=== PATIENT | female | born 1995 | race African-American/Black ===

== ENCOUNTER → 2017-05-20 00:20 | Observation (INO) ==
[2017-05-19 23:28] LABS: Bilirubin,Urine Negative (Negative); Blood,Urine Negative (Negative); Clarity,Urine Cloudy (Clear); Color,Urine Yellow (Yellow); Glucose,Urine (UA) Normal (Normal); Ketones,Urine Negative (Negative); Leukocyte Esterase,Urine Small (Negative); Nitrite,Urine Negative (Negative); Protein,Urine Negative (Neg-Trace); Specific Gravity,Urine 1.008 (1.010-1.025); Urobilinogen,Urine Normal (Normal)
[2017-05-19 23:30] LABS: Bacteria,Urine Few per hpf (None-Few); Hyaline Casts,Urine None Seen per lpf (None-Few); RBC,Urine 0-3 per hpf (0-3); Squamous Epithelial Cell,Urine Many per lpf (None-Few); WBC,Urine 0-3 per hpf (0-3)
[2017-05-19 23:34] LABS: Amphetamine Screen,Urine Negative ng/mL (Cutoff=1000); Barbiturate Screen,Urine Negative ng/mL (Cutoff=200); Benzodiazepines Screen,Urine Negative ng/mL (Cutoff=200); Cannabinoid Screen,Urine Negative ng/mL (Cutoff = 50); Cocaine Screen,Urine Negative ng/mL (Cutoff= 300); Opiate Screen,Urine Negative ng/mL (Cutoff=300); Phencyclidine Screen,Urine Negative ng/mL (Cutoff=25)
--- NOTE | 2017-05-20 07:02 | Discharge Summary ---
Date of Encounter: 05/20/17 Time of Encounter: 00:19 - Discharge Diagnosis (1) 35 weeks gestation of Priority: Primary Status: Acute Comments: admitted for observation (2) Vaginal discharge during in third trimester Priority: Secondary Status: Acute Comments: nitrazine negative (3) NST (non-stress test) reactive on surveillance Priority: Secondary Status: Acute Comments: 125 bpm moderate variability +15x15 accels no decels noted. cat. 1 tracing no contractions noted. - Discharge Medications Home Medications: Multivitamin [Flintstones] 1 each PO DAILY 05/19/17 [History] Allergies/Adverse Reactions: 3 Allergy/AdvReac Type Severity Reaction Status Date / Time diphenhydramine Allergy Rash Verified 05/19/17 22:59 [From Ellen] Data Procedures and tests throughout hospitalization: Laboratory Tests 05/19/17 05/19/17 23:12 23:12 Urine Color Yellow Urine Clarity Cloudy A Urine pH 7.0 Ur Specific [place] 1.008 L Urine Protein Negative Urine Glucose (UA) Normal Urine Ketones Negative Urine Blood Negative Urine Nitrite Negative Urine Bilirubin Negative Urine Urobilinogen Normal Ur Leukocyte Esterase Small H Urine Microscopic RBC 0-3 Urine Microscopic WBC 0-3 Ur Squamous Epith Cells Many H Urine Bacteria Few Hyaline Casts None Seen Ur Culture Indicated? YES A Urine Opiates Screen Negative Ur Barbiturates Screen Negative Ur Phencyclidine Scrn Negative Ur Amphetamines Screen Negative U Benzodiazepines Scrn Negative Urine Cocaine Screen Negative U Marijuana (THC) Screen Negative Labs on day of discharge: Labs from last 24 hours 05/19/17 05/19/17 23:12 23:12 Urine Color Yellow Urine Clarity Cloudy A Urine pH 7.0 Ur Specific [place] 1.008 L Urine Protein Negative Urine Glucose (UA) Normal Urine Ketones Negative Urine Blood Negative Urine Nitrite Negative Urine Bilirubin Negative Urine Urobilinogen Normal Ur Leukocyte Esterase Small H Urine Microscopic RBC 0-3 Urine Microscopic WBC 0-3 Ur Squamous Epith Cells Many H Urine Bacteria Few Hyaline Casts None Seen Ur Culture Indicated? YES A Urine Opiates Screen Negative Ur Barbiturates Screen Negative Ur Phencyclidine Scrn Negative Ur Amphetamines Screen Negative U Benzodiazepines Scrn Negative Urine Cocaine Screen Negative U Marijuana (THC) Screen Negative Date of admission: 05/19/17 22:40 Primary care physician: PCP NONE Discharging clinician: Laura Prasad Anticipated date of discharge: 05/20/17 - Patient Status Disposition: Home, Self-Care Condition: Good Functional capacity at discharge: independent ambulation - Discharge Instructions Follow Up With: NONE,PCP [Primary Care Provider] - Additional Instructions: LABOR AND DELIVERY DISCHARGE INSTRUCTIONS Signs and Symptoms to be Reported to your Doctor Immediately: * Sudden gush, continuous or intermittent lead of fluid from vagina (note the time of gush and color of fluid) * Onset of bright red vaginal bleeding with or without pain (if you had a vaginal exam during this visit you may notice some dark red spotting. This is normal.) * Lower abdominal cramping or backache that is premenstrual-like feeling. * More than 6 contractions in one hour. * Burning during urination, having to urinate more frequently or pain in your mid-back. * A change in the baby's activity. This could be an increase or decrease in activity. * Severe headache which does not go away with tylenol. * Sudden swelling in the face, hands, arms and/or legs. * Upper abdominal pain - sometimes associated with heartburn or nausea and is not relieved by Maalox, Mylanta or Tums. * Dizziness or blurred vision or visual disturbances (seeing stars/lights). * Kick Counts One hour after a meal, lay down on one side in a quiet place. Count the number of rachel the baby moves during an hour. If less than 6 movements, notify your physician. Diet: *Force fluids - 8-10 tall glasses of fluid per day. May include popsicles and jello. 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 Patient reports +FM. Patient denies contractions or VB. SVE per RN . Time Attestation: Total time spent providing and/or coordinating discharge services: Time Spent: Less than 30 minutes Exam - Other Additional findings: Patient seen and assessed by RN. FHR 125 bpm moderate variability +15x15 accels no decels cat. 1 tracing. no contractions noted. - VTE Reasons for not Prescribing Prophylaxis: Treatment not Indicated - Low risk for VTE
== END | disposition home or self-care (01) ==
LOC: 1NENULAB
PROVIDERS: ADMIT Obstetrics & Gynecology; ATTEND Obstetrics & Gynecology

== ENCOUNTER → 2018-04-30 02:19 | Observation (INO) ==
[2018-04-30 00:48] LABS: Bilirubin,Urine Negative (Negative); Blood,Urine Negative (Negative); Clarity,Urine Cloudy (Clear); Color,Urine Yellow (Yellow); Glucose,Urine (UA) Normal (Normal); Ketones,Urine Negative (Negative); Leukocyte Esterase,Urine Trace (Negative); Nitrite,Urine Negative (Negative); Protein,Urine Negative (Neg-Trace); Specific Gravity,Urine 1.005 (1.010-1.025); Urobilinogen,Urine Normal (Normal)
[2018-04-30 00:49] LABS: Amphetamine Screen,Urine Negative ng/mL (Cutoff=1000); Bacteria,Urine Moderate per hpf (None-Few); Barbiturate Screen,Urine Negative ng/mL (Cutoff=200); Benzodiazepines Screen,Urine Negative ng/mL (Cutoff=200); Cannabinoid Screen,Urine Negative ng/mL (Cutoff = 50); Cocaine Screen,Urine Negative ng/mL (Cutoff= 300); Hyaline Casts,Urine None Seen per lpf (None-Few); Opiate Screen,Urine Negative ng/mL (Cutoff=300); Phencyclidine Screen,Urine Negative ng/mL (Cutoff=25); RBC,Urine 0-3 per hpf (0-3); Squamous Epithelial Cell,Urine Many per lpf (None-Few)
[2018-04-30 01:17] LABS: Amorphous Sediment,Urine Few (Few)
--- NOTE | 2018-05-06 16:22 | Event Note ---
Date of Encounter: 04/30/18 Time of Encounter: 20:00 Ivette is a 22-year-old -[place] female who presented to labor and delivery at 37+ weeks gestation complaining of contractions. On presentation patient was found to be brad irregularly. Category 1 tracing was noted by nursing. Urinalysis was ordered which completely negative. Patient did not change her cervix over the course of time. Patient was monitored. She ambulated. She did not change her cervix. Because of this she was discharged to home. I was notified by phone from nursing that there been no cervical change and that patient would like to go home. I gave the order for patient to be discharged.
== END | disposition home or self-care (01) ==
LOC: 1NENULAB
PROVIDERS: ADMIT Obstetrics & Gynecology; ATTEND Obstetrics & Gynecology

== ENCOUNTER 2018-05-07 23:46 | Inpatient (IN) ==
[~2018-05-07 23:46] MED LIST: Famotidine 20 MG/2 ML VIAL IVP PRN; Lidocaine 1% 20 ML MDV INFILT PRN; Metoclopramide 10 MG/2 ML VIAL IVP PRN; Naloxone 0.4 MG/ML INJ IVP PRN; Ondansetron 4 MG/2 ML VIAL IVP PRN
[2018-05-08] MEDS ORDERED: *HR* Nalbuphine 10 MG/ML AMPUL IV PRN (00:04)
[2018-05-08] MEDS ORDERED: Ringers Solution, Lactated 1,000 ML ONE (00:09)
[2018-05-08 00:18] LABS: Basophils % 0.2 %; Eosinophils # 0.1 K/mcL (0.0-0.6); Eosinophils % 0.6 %; Hematocrit 33.1 % (35.3-44.9); Hemoglobin 10.8 g/dL (11.5-15.4); Immature Granulocytes % 1.3 % (0-4); Lymphocytes # 2.6 K/mcL (0.6-4.6); Lymphocytes % 20.2 %; Mean Corpuscular HGB Conc 32.6 g/dL (31.6-35.5); Mean Corpuscular Volume 79.6 fL (83.0-100.0); Mean Platelet Volume 12.1 fL (9.4-12.4); Monocytes # 0.8 K/mcL (0.0-1.3); Monocytes % 6.5 %; Neutrophils # 9.1 K/mcL (1.6-8.9); Platelet Count 210 K/mcL (140-400); Red Blood Count 4.16 M/mcL (3.82-4.97); Red Cell Distribution Width 15.7 % (11.5-14.5); Segmented Neutrophils % 71.2 %
[2018-05-08 00:19] LABS: Amphetamine Screen,Urine Negative ng/mL (Cutoff=1000); Barbiturate Screen,Urine Negative ng/mL (Cutoff=200); Benzodiazepines Screen,Urine Negative ng/mL (Cutoff=200); Cannabinoid Screen,Urine Negative ng/mL (Cutoff = 50); Cocaine Screen,Urine Negative ng/mL (Cutoff= 300); Opiate Screen,Urine Negative ng/mL (Cutoff=300); Phencyclidine Screen,Urine Negative ng/mL (Cutoff=25)
--- NOTE | 2018-05-08 03:50 | OB/GYN History & Physical ---
Date of Encounter: 05/08/18 Time of Encounter: 02:30 Assessment and Plan (1) 37 weeks gestation of Current visit: Yes Status: Acute Admit for labor History of Present Illness Chief complaint: Labor HPI: Ms. Cota is a 22 year old at 37 weeks gestation that presents to labor and delivery with c/o contractions that began after her physician "sweeped " her membranes yesterday. She denies any problems with this , but did state she had an abnormal 1 hour, but never did her 3 hour GTT. She states positive movement. She denies headache, vision changes, epigastric pain, leaking of fluid, and vaginal bleeding. Labs: Blood type O- GBS neg HIV neg Hep B neg Hep C pos RPR neg Past Med Surg Social Fam HX - Past Medical History Medical history: non-contributory Psychiatric history: no psych history - Past Surgical History Surgical History: no surgical history - Social History Smoking Status: Current every day smoker Smokeless Tobacco Status: No Alcohol use: none Drug use: none - Family History Grandfather Living Status: Still Living Hx Family Endocrine Disorder: Yes (Diabetic) Mother Hx Family Medical Disorders: Yes (GDM) Obstetrical History - Pregnancies : 4 Para: 3 Term: 3 : 0 Ab's: 0 Livin Medications and Allergies Multivitamin [Flintstones] 1 each PO DAILY 05/19/17 [History] Ferrous Sulfate [Iron] 325 mg PO DAILY 04/30/18 [History] 3 Allergy/AdvReac Type Severity Reaction Status Date / Time diphenhydramine AdvReac Dizziness Verified 05/08/18 00:18 [From Benadryl] Review of System OB All systems PM: reviewed and no additional remarkable complaints except as stated Exam - Constitutional Constitutional: well developed, well nourished, no acute distress, average body habitus - HEENT HEENT: Normocephaly, Mucus Membranes Moist - Lungs Respiratory exam: CTAB - Cardiovascular Cardiovascular exam: RRR - Abdomen Abdomen: Present: bowel sounds normal, gravid, non tender - Extremities Extremities exam: normal capillary refill, normal inspection, radial pulses palpable and symmetrical Deep Tendon Reflex Grade: 2+ Normal - Vagina Vagina: Present: normal moisture - Cervix Dilation: 6 Effacement: 90 Station: -1 Results Result Diagrams: 09/20/18 23:50 Abnormal lab results WBC 12.7 K/mcL (4.3-11.1) H 05/07/18 23:50 Hgb 10.8 g/dL (11.5-15.4) L 05/07/18 23:50 Hct 33.1 % (35.3-44.9) L 05/07/18 23:50 MCV 79.6 fL (83.0-100.0) L 05/07/18 23:50 MCH 26.0 pg (28.0-33.3) L 05/07/18 23:50 RDW 15.7 % (11.5-14.5) H 05/07/18 23:50 Neutrophils # 9.1 K/mcL (1.6-8.9) H 05/07/18 23:50 All other labs normal. - VTE Reasons for not Prescribing Prophylaxis: Treatment not Indicated - Low risk for VTE
--- NOTE | 2018-05-08 03:58 | OB/GYN Procedure Note ---
Delivery - Delivery Date: 05/08/18 Provider: Chanell Rowan Intrapartum events: none Delivery induction: none Delivery augmentation: rupture of membranes Delivery monitor: external FHT, external uterine Anesthesia: local Quantitated Blood Loss: 300 - (s) Infant A Delivery Date: 05/08/18 Delivery Time: 03:11 Presentation: vertex Position: JUNI (compound right hand) Route of delivery: Gender: Female Viability: Viable Pounds: 6 Ounces: 9 Weight Gram: 2.965 kg at 1 minute: 9 at 5 mins: 9 Shoulder Dystocia: not encountered Specimens collected: cord blood Placenta: spontaneous Cord: 3 umbilical vessels - Repair Episiotomy: none Laceration Description: Labial (bilateral) - Complications Delivery complications: none Delivery comments: AROM for clear fluid. Patient then went to complete within 2 contractions and began spontaneously pushing to of viable, vigorous female in the JUNI position with a compound right hand. No nuchal, no meconium, no shoulder dystocia encountered. placed on maternal abdomen, warmed, dried, and stimulated. Cord double clamped and cut with assitance of FOB after pulsations ceased. Placenta delivered spontaneously and appears grossly intact with 2 vessel cord. Upon inspection, bilateral labial lacerations were noted and repaired with 3-0 monocryl in the ususal fashion. EBL 300mL. Uterus firm and bleeding light after completion of repair. Infant and mother stable and in recovery for [address] Rivera notified of delivery. - Disposition Mom disposition: stable in LDR disposition: stable in LDR
[2018-05-08] MEDS ORDERED: Benzocaine/Menthol 56 GM AEROSOL SPRAY TP PRN (04:07)
[2018-05-08] MEDS ORDERED: Measles/Mumps/Rubella Vacc 0.5 ML VIAL SQ PRN (04:07)
[2018-05-08] MEDS ORDERED: Oxytocin 20 units/ LR 1000 mL 20 UNIT/1,000 ML BAG IVC SCH (04:07)
[2018-05-08] MEDS ORDERED: Oxytocin 20 units/ LR 1000 mL 20 UNIT/1,000 ML BAG IVC ONE (04:07)
[2018-05-08] MEDS ORDERED: Rho Immune Globulin 1,500 UNIT SYRINGE IM PRN (04:07)
[2018-05-08] MEDS ORDERED: Acetaminophen 325 MG TABLET PO PRN (04:07)
[2018-05-08] MEDS: Ibuprofen 600 MG TABLET PO PRN ×3 (04:21→18:51)
[2018-05-08] MEDS: Prenatal Vit/FA 1 EACH TABLET PO SCH (09:22)
[2018-05-09] MEDS: Ibuprofen 600 MG TABLET PO PRN ×2 (02:51→09:02)
[2018-05-09 07:47] VITALS: BP 117/78
[2018-05-09] MEDS: Prenatal Vit/FA 1 EACH TABLET PO SCH (09:02)
--- NOTE | 2018-05-09 09:17 | Discharge Summary ---
Date of Encounter: 05/09/18 Time of Encounter: 09:15 - Discharge Diagnosis (1) Vaginal delivery Priority: Primary Status: Acute Comments: Pt meeting all milestones. She desires discharge to guest today. - Discharge Medications Prescriptions: Ibuprofen [Motrin] 600 mg PO Q6HR PRN #30 tablet PRN Reason: Cramping Docusate [Colace] 100 mg PO BID #30 capsule Home Medications: Multivitamin [Flintstones] 1 each PO DAILY 05/19/17 [History] Benzocaine/Menthol [place] [Dermoplast [place]] 1 appl TP QID PRN aerosol 05/09/18 [Rx] Docusate [Colace] 100 mg PO BID #30 capsule 05/09/18 [Rx] Ibuprofen [Motrin] 600 mg PO Q6HR PRN #30 tablet 05/09/18 [Rx] Allergies/Adverse Reactions: 3 Allergy/AdvReac Type Severity Reaction Status Date / Time diphenhydramine AdvReac Dizziness Verified 05/08/18 00:18 [From Ellen] Data Procedures and tests throughout hospitalization: Laboratory Tests 05/07/18 05/07/18 05/08/18 23:50 23:50 04:25 WBC 12.7 H RBC 4.16 Hgb 10.8 L Hct 33.1 L MCV 79.6 L MCH 26.0 L MCHC 32.6 RDW 15.7 H Plt Count 210 MPV 12.1 Immature Gran % 1.3 Seg Neutrophils % 71.2 Lymphocytes % 20.2 Monocytes % 6.5 Eosinophils % 0.6 Basophils % 0.2 Neutrophils # 9.1 H Lymphocytes # 2.6 Monocytes # 0.8 Eosinophils # 0.1 Basophils # 0.0 Urine Opiates Screen Negative Ur Barbiturates Screen Negative Ur Phencyclidine Scrn Negative Ur Amphetamines Screen Negative U Benzodiazepines Scrn Negative Urine Cocaine Screen Negative U Marijuana (THC) Screen Negative Ur Drug Screen Interp See Below Screen NEGATIVE Baby's Blood Type O RH POSITIVE Mother's Blood Type O RH NEGATIVE Rhogam Indicated YES Rhogam Req for Mother 1 Date of admission: 05/07/18 23:46 Primary care physician: PCP NONE Consults: 05/08/18 04:07 Consult to [employer] Performer [CONS] Routine Comment: Vaginal delivery, consult needed Consult to [employer] Shot Packer [CONS] Routine Reason for SW Consult: Hep C positive. Denies any current drug abuse Discharging clinician: Geraldine Ghosh Anticipated date of discharge: 05/09/18 - Patient Status Disposition: Home, Self-Care Condition: Good Functional capacity at discharge: independent ambulation Overall status at discharge: patient is progressing back to baseline - Discharge Instructions Follow Up With: NONE,PCP [Primary Care Provider] - Brent Sneed MD [Partnered Physician] - - Diet and Activity Activity: increase activity as tolerated Diet: regular diet Hospital Course Reason for admission: active labor Delivery: Episiotomy: none Laceration: other (bilateral labial) Other procedures: none complications: none Discharge diagnosis: IUP at term delivered baby: female Hospital course: - Delivery Date: 05/08/18 Provider: Chanell Rowan Intrapartum events: none Delivery induction: none Delivery augmentation: rupture of membranes Delivery monitor: external FHT, external uterine Anesthesia: local Quantitated Blood Loss: 300 - (s) A Delivery Date: 05/08/18 Infant Delivery Time: 03:11 Presentation: vertex Position: JUNI (compound right hand) Route of delivery: Gender: Female Viability: Viable Pounds: 6 Ounces: 9 Weight Gram: 2.965 kg at 1 minute: 9 at 5 mins: 9 Shoulder Dystocia: not encountered Specimens collected: cord blood Placenta: spontaneous Cord: 3 umbilical vessels - Repair Episiotomy: none Laceration Description: Labial (bilateral) - Complications Delivery complications: none - Disposition Mom disposition: home PPD1 disposition: observation for TALI Time Attestation: Total time spent providing and/or coordinating discharge services: Time Spent: Less than 30 minutes Exam - Constitutional Vitals: Temp Pulse Resp BP Pulse Ox 97.8 F 76 16 117/78 98 05/09/18 07:46 05/09/18 07:46 05/09/18 09:06 05/09/18 07:46 05/09/18 07:46 General appearance IM: A&O X 3 - Respiratory Respiratory exam: Present: CTAB - Cardiovascular Cardiovascular exam IM: Present: RRR - GI/Abdominal GI/Abdominal exam IM: soft - Uterine Tone: Firm Uterus Position: 2 Fingers Below Umbilicus - Extremities Exam Extremities exam IM: Present: normal inspection - Neurological Exam Neurological exam: normal gait, oriented X3 - Psychiatric Additional comments: pt reports good mood, she has received depo provera for contraception per her request.
== END 2018-05-09 09:30 | disposition home or self-care (01) | DRG 560 ==
LOC: 1NENULAB → 1NENUOBS 05-08 06:12
PROVIDERS: ADMIT Advanced Practice Midwife; ATTEND Advanced Practice Midwife

== ENCOUNTER 2019-08-04 00:30 | Inpatient (IN) ==
[~2019-08-04 00:30] MED LIST changes: +*HR* Nalbuphine 10 MG/ML AMPUL IVP PRN
[2019-08-04 00:47] LABS: Basophils % 0.2 %; Eosinophils # 0.1 K/mcL (0.0-0.6); Eosinophils % 0.7 %; Hematocrit 30.1 % (35.3-44.9); Hemoglobin 9.9 g/dL (11.5-15.4); Immature Granulocytes % 0.9 % (0-4); Immature Platelets 15.8 % (1.1-6.1); Lymphocytes # 2.2 K/mcL (0.6-4.6); Lymphocytes % 21.4 %; Mean Corpuscular HGB Conc 32.9 g/dL (31.6-35.5); Mean Corpuscular Hemoglobin 26.1 pg (28.0-33.3); Mean Corpuscular Volume 79.4 fL (83.0-100.0); Mean Platelet Volume 12.3 fL (9.4-12.4); Monocytes # 0.8 K/mcL (0.0-1.3); Monocytes % 7.6 %; Platelet Count 156 K/mcL (140-400); Red Blood Count 3.79 M/mcL (3.82-4.97); Segmented Neutrophils % 69.2 %
[2019-08-04 00:59] LABS: Amphetamine Screen,Urine Negative ng/mL (Cutoff=1000); Barbiturate Screen,Urine Negative ng/mL (Cutoff=200); Benzodiazepines Screen,Urine Negative ng/mL (Cutoff=200); Cannabinoid Screen,Urine Negative ng/mL (Cutoff = 50); Cocaine Screen,Urine Negative ng/mL (Cutoff= 300); Opiate Screen,Urine Negative ng/mL (Cutoff=300); Phencyclidine Screen,Urine Negative ng/mL (Cutoff=25)
[2019-08-04] MEDS ORDERED: Oxytocin 20 units/ LR 1000 mL 20 UNIT/1,000 ML BAG IVC SCH (01:15)
[2019-08-04] MEDS: Ringers Solution, Lactated 1,000 ML IVC SCH ×2 (03:59→17:43)
[2019-08-04] MEDS ORDERED: Epidural Premix (fent/bupiv) 110 ML EP SCH (05:45)
[2019-08-04] MEDS ORDERED: *HR* FentaNYL (PF) 100 MCG/2 ML VIAL ONE (06:14)
[2019-08-04] MEDS ORDERED: Lanolin 7 G OINT...G. TP PRN (09:47)
[2019-08-04] MEDS ORDERED: Rho Immune Globulin 1,500 UNIT SYRINGE IM PRN (09:47)
[2019-08-04] MEDS ORDERED: Acetaminophen 325 MG TABLET PO PRN (09:47)
[2019-08-04] MEDS ORDERED: Benzocaine/Menthol 56 GM AEROSOL SPRAY TP PRN (09:47)
[2019-08-04] MEDS: Prenatal Vit/FA 1 EACH TABLET PO SCH (10:24)
[2019-08-04] MEDS: Ibuprofen 600 MG TABLET PO PRN (13:18)
[2019-08-04] MEDS: Oxytocin 20 units/ LR 1000 mL 20 UNIT/1,000 ML BAG IVC SCH ×2 (17:26→17:29)
[2019-08-05] MEDS: Ibuprofen 600 MG TABLET PO PRN ×2 (04:10→10:14)
[2019-08-05 08:20] VITALS: BP 105/69
[2019-08-05 08:42] LABS: Basophils % 0.3 %; Eosinophils # 0.1 K/mcL (0.0-0.6); Eosinophils % 0.7 %; Hematocrit 28.9 % (35.3-44.9); Hemoglobin 9.1 g/dL (11.5-15.4); Immature Granulocytes % 1.4 % (0-4); Lymphocytes # 1.2 K/mcL (0.6-4.6); Lymphocytes % 16.9 %; Mean Corpuscular HGB Conc 31.5 g/dL (31.6-35.5); Mean Corpuscular Hemoglobin 26.1 pg (28.0-33.3); Mean Corpuscular Volume 82.8 fL (83.0-100.0); Mean Platelet Volume 11.6 fL (9.4-12.4); Monocytes # 0.5 K/mcL (0.0-1.3); Monocytes % 7.6 %; Neutrophils # 5.2 K/mcL (1.6-8.9); Platelet Count 119 K/mcL (140-400); Red Blood Count 3.49 M/mcL (3.82-4.97); Segmented Neutrophils % 73.1 %; White Blood Count 7.2 K/mcL (4.3-11.1)
[2019-08-05] MEDS: Prenatal Vit/FA 1 EACH TABLET PO SCH (10:14)
== END 2019-08-05 13:20 | disposition home or self-care (01) | DRG 560 ==
LOC: 1NENULAB → 1NENUOBS 09:29
PROVIDERS: ADMIT Advanced Practice Midwife; ATTEND Advanced Practice Midwife

== ENCOUNTER 2020-09-05 07:33 | Inpatient (IN) ==
[2020-09-05 07:29] LABS: Basophils % 0.4 %; Eosinophils # 0.1 K/mcL (0.0-0.6); Eosinophils % 0.6 %; Hematocrit 39.2 % (35.3-44.9); Hemoglobin 12.7 g/dL (11.5-15.4); Immature Granulocytes % 0.8 % (0-4); Lymphocytes # 1.9 K/mcL (0.6-4.6); Lymphocytes % 17.1 %; Mean Corpuscular HGB Conc 32.4 g/dL (31.6-35.5); Mean Corpuscular Hemoglobin 28.1 pg (28.0-33.3); Mean Corpuscular Volume 86.7 fL (83.0-100.0); Mean Platelet Volume 12.1 fL (9.4-12.4); Monocytes # 0.8 K/mcL (0.0-1.3); Monocytes % 6.9 %; Neutrophils # 8.4 K/mcL (1.6-8.9); Platelet Count 138 K/mcL (140-400); Red Blood Count 4.52 M/mcL (3.82-4.97); Red Cell Distribution Width 16.6 % (11.5-14.5); Segmented Neutrophils % 74.2 %; White Blood Count 11.2 K/mcL (4.3-11.1)
[~2020-09-05 07:33] MED LIST changes: -*HR* Nalbuphine 10 MG/ML AMPUL IVP PRN; +Azithromycin 500 MG in 0.9 % Sodium Chloride 250 ML IVPB ONE; -Lidocaine 1% 20 ML MDV INFILT PRN; -Ondansetron 4 MG/2 ML VIAL IVP PRN; +Ringers Solution, Lactated 1,000 ML IVC SCH
[2020-09-05] MEDS ORDERED: *HR* FentaNYL (PF) 100 MCG/2 ML VIAL ONE (07:41)
[2020-09-05] MEDS ORDERED: Ropivacaine/PF 0.2% 20 ML VIAL ONE (07:41)
[2020-09-05] MEDS ORDERED: Epidural Premix (fent/bupiv) 110 ML EP ONE (07:43)
[2020-09-05] MEDS ORDERED: EPHEDrine 50 MG/ML VIAL IVP PRN (08:17)
[2020-09-05] MEDS ORDERED: Epidural Premix (fent/bupiv) 110 ML EP SCH (08:30)
[2020-09-05 09:02] LABS: Amphetamine Screen,Urine Negative ng/mL (Cutoff=1000); Barbiturate Screen,Urine Negative ng/mL (Cutoff=200); Benzodiazepines Screen,Urine Negative ng/mL (Cutoff=200); Cannabinoid Screen,Urine Negative ng/mL (Cutoff = 50); Cocaine Screen,Urine Negative ng/mL (Cutoff= 300); Opiate Screen,Urine Negative ng/mL (Cutoff=300); Phencyclidine Screen,Urine Negative ng/mL (Cutoff=25)
[2020-09-05] MEDS ORDERED: Rho Immune Globulin 1,500 UNIT SYRINGE IM PRN (12:43)
[2020-09-05] MEDS ORDERED: Measles/Mumps/Rubella Vacc 0.5 ML VIAL SQ PRN (12:43)
[2020-09-05] MEDS ORDERED: Acetaminophen 325 MG TABLET PO PRN (12:43)
[2020-09-05] MEDS ORDERED: Oxytocin 20 units/ LR 1000 mL 20 UNIT/1,000 ML BAG IVC SCH (12:43)
[2020-09-05] MEDS: Ibuprofen 600 MG TABLET PO PRN ×2 (13:56→20:02)
[2020-09-05] MEDS ORDERED: Methylergonovine 0.2 MG/ML AMPUL IM ONE (14:08)
[2020-09-05] MEDS ORDERED: Benzocaine/Menthol 56 GM AEROSOL SPRAY TP PRN (14:27)
[2020-09-06] MEDS: Ibuprofen 600 MG TABLET PO PRN ×2 (05:44→19:55)
[2020-09-06 06:35] LABS: Basophils % 0.2 %; Eosinophils % 1.2 %; Red Cell Distribution Width 16.8 % (11.5-14.5)
[2020-09-06 06:37] LABS: Eosinophils # 0.1 K/mcL (0.0-0.6); Hematocrit 30.8 % (35.3-44.9); Hemoglobin 9.9 g/dL (11.5-15.4); Immature Granulocytes % 1.1 % (0-4); Immature Platelets 13.8 % (1.1-6.1); Lymphocytes # 1.9 K/mcL (0.6-4.6); Lymphocytes % 20.9 %; Mean Corpuscular HGB Conc 32.1 g/dL (31.6-35.5); Mean Corpuscular Hemoglobin 28.4 pg (28.0-33.3); Mean Corpuscular Volume 88.3 fL (83.0-100.0); Mean Platelet Volume 11.9 fL (9.4-12.4); Monocytes # 0.7 K/mcL (0.0-1.3); Monocytes % 7.6 %; Neutrophils # 6.3 K/mcL (1.6-8.9); Platelet Count 127 K/mcL (140-400); Red Blood Count 3.49 M/mcL (3.82-4.97); White Blood Count 9.1 K/mcL (4.3-11.1)
[2020-09-06] MEDS: Prenatal Vit/FA 1 EACH TABLET PO SCH (08:48)
[2020-09-06] MEDS: 0.9 % Sodium Chloride 1,000 ML IVC SCH (23:47)
[2020-09-07 07:39] VITALS: BP 101/69
[2020-09-07] MEDS ORDERED: Lidocaine/EPI 1:100k 1% 30 ML VIAL INFILT ONE (12:12)
[2020-09-07] MEDS ORDERED: Etonogestrel 68 MG IMPLANT IL ONE (12:12)
[2020-09-07] MEDS: Prenatal Vit/FA 1 EACH TABLET PO SCH (12:31)
[2020-09-07] MEDS: 0.9 % Sodium Chloride 1,000 ML IVC SCH (12:36)
== END 2020-09-07 14:09 | disposition home or self-care (01) ==
LOC: 1NENULAB → 1NENUOBS 12:39
PROVIDERS: ADMIT Advanced Practice Midwife; ATTEND Advanced Practice Midwife